=== PATIENT | male | born 1955 | race Caucasian/White ===

== ENCOUNTER → 2021-06-28 | Outpatient (CLI) | payer MEDICARE ==
[~2021-06-28] VITALS: Ht 170 cm; Wt 77.0 kg
[~2021-06-28] MED LIST: CATHETER FLUSH 10 ML SYR IV PRN; REGADENOSON 0.4 MG/5 ML SYR (LEXISCAN) IV ONE
[2021-06-28 12:04] LABS: ALBUMIN 4.1 GM/DL (3.2-4.5); BILIRUBIN,TOTAL 0.8 MG/DL (0.1-1.0); CREATININE SERUM 0.78 MG/DL (0.60-1.30); POTASSIUM 4.5 MMOL/L (3.6-5.0); TOTAL PROTEIN 7.4 GM/DL (6.4-8.2)
[2021-06-28 13:00] VITALS: BP 128/73
[2021-06-28 13:08] VITALS: BP 142/77
--- NOTE | 2021-06-28 15:20 | Cardiology Stress Test Report ---
Stress Test Report Date of Procedure/Referring: Date of Procedure: Jun 28, 2021 PCP Casa Curiel MD Admitting Physician Indications: CAD Baseline Heart Rate: 78 Baseline Blood Pressure: Blood Pressure Systolic: 142 Blood Pressure Diastolic: 77 Baseline Vitals Vital Signs Date Time Temp Pulse Resp B/P (MAP) Pulse Ox O2 Delivery O2 Flow Rate FiO2 06/28/21 13:00 78 128/73 (91) Baseline EKG: Baseline EKG: NSR Summary After explaining the procedure to the patient, he signed a consent and then brought to the stress nuclear laboratory. Patient received 0.4 mg Lexiscan for stress test, ECG, heart rate and blood pressure were monitored continuously. Resting and stress dose of radio tracer were injected, imaging was acquired and reviewed in short axis, horizontal long axis and vertical long axis views. TID: 1.14 SSS: 38 SDS: 3 EF: 49 1. Patient was unable to exercise, test was terminated and converted to Lexiscan Myoview stress test. 2. Patient tolerated Lexiscan well 3. 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 Prominent left ventricle diffuse left ventricular hypokinesia, akinesia of the apex, ejection fraction 49% CASA CURIEL MD Jun 28, 2021 15:20
== END ==
LOC: CARD 11:30
PROVIDERS: ATTEND Internal Medicine Cardiovascular Disease
DX: I10 Essential (primary) hypertension (principal); I25.10 Atherosclerotic heart disease of native coronary artery without angina pectoris
CPT/HCPCS: 78452; 80053; 80061; 93017; 93306; A9502; 36415

== ENCOUNTER → 2022-07-11 | Outpatient (CLI) | payer MEDICARE ==
[~2022-07-11] VITALS: Ht 172.7 cm; Wt 71.2 kg
[~2022-07-11] MED LIST changes: +ATOR10TA66 PO; +BUDE10.2 IH; -CATHETER FLUSH 10 ML SYR IV PRN; +EMPA25TA PO; +GABA-490 PO; +LISI10TA25 PO; +METF-479 PO; +METO-333 PO; +NAPR-1033 PO; -REGADENOSON 0.4 MG/5 ML SYR (LEXISCAN) IV ONE; +RT-ALBUINH IH; +TIOT18CA2 IH
== END | disposition home or self-care (01) ==
LOC: PREOP 05:30
PROVIDERS: ATTEND Surgery
DX: Z01.818 Encounter for other preprocedural examination (principal)

== ENCOUNTER 2022-07-18 07:27 | Day surgery (SDC) | payer MEDICARE ==
[~2022-07-18] VITALS: Ht 172 cm; Wt 71.2 kg
[2022-07-18] VITALS (10 sets, daily range): BP systolic 105–182; BP diastolic 67–97
[2022-07-18] MEDS: LACTATED RINGERS 1,000 ML IV PRN ×2 (08:11→11:20)
--- NOTE | 2022-07-18 08:24 | Progress Note-Pre Operative ---
Pre-Operative Progress Note Date of Available H&P: Jul 05, 2022 Date H&P Reviewed: Jul 18, 2022 Time H&P Reviewed: 08:22 History & Physical: H&P Reviewed, Patient Examed, No changes noted Pre-Operative Diagnosis: Left gluteal abscess, site marked DELORES WOLF DO Jul 18, 2022 08:24
[2022-07-18] MEDS ORDERED: metroNIDAZOLE 500MG/100ML IVPB 100 ML IV ONE (08:45)
[2022-07-18] MEDS ORDERED: proPOfol 200 MG/20 ML (DIPRIVAN) VIAL IV ONE (08:49)
[2022-07-18] MEDS ORDERED: ROCURONIUM 10 MG/ML 5 ML SYRINGE IV ONE (08:49)
[2022-07-18] MEDS ORDERED: MIDAZOLAM 2 MG/2 ML (VERSED) VIAL ONE (08:49)
[2022-07-18] MEDS ORDERED: ONDANSETRON 4 MG/2 ML (SDV) Z0FRAN ONE (08:49)
[2022-07-18] MEDS ORDERED: LIDOCAINE PF 2% 5 ML (XYLOCAINE) VIAL ONE (08:49)
[2022-07-18] MEDS ORDERED: fentaNYL INJ 100 MCG/2 ML AMP ONE (08:49)
[2022-07-18] MEDS ORDERED: SEVOFLURANE (ULTANE) 15 ML INHAL SOLN ONE ×3 (08:49→11:08)
[2022-07-18] MEDS ORDERED: metroNIDAZOLE 500MG/100ML IVPB 0 ML ONE (08:51)
[2022-07-18] MEDS ORDERED: ceFAZolin INJECTION 2,000 MG in NS (IVPB) 50 ML IV ONE (09:00)
--- NOTE | 2022-07-18 11:10 | Progress Note-Post Operative ---
Post-Operative Progess Note Surgeon (s)/Utility Helicopter Repairer (s) Surgeon DELORES WOLF DO Utility Helicopter Repairer: QUINTON Clinton Pre-Operative Diagnosis Left gluteal abscess, site marked Post-Operative Diagnosis Gluteal abscess and fistula Procedure & Operative Findings Date of Procedure 07/18/22 Procedure Performed/Findings Fistulectomy/fistulotomy Anesthesia Type GET Estimated Blood Loss Estimated blood loss (mL): appx 20ml Specimens/Packing Specimens Removed portion of fistula tract DELORES WOLF DO Jul 18, 2022 11:10
--- NOTE | 2022-07-18 11:15 | Progress Note-Post Operative ---
Post-Operative Progess Note Surgeon (s)/Facility Maintenance Technician (s) Surgeon DELORES WOLF DO Facility Maintenance Technician: JOHN ClintonII Pre-Operative Diagnosis screening colonoscopy Post-Operative Diagnosis Polyp Diverticula int hemorrhoids Procedure & Operative Findings Date of Procedure 07/18/22 Procedure Performed/Findings Colonoscopy with snare polypectomy PROCEDURE NOTE: After informed consent was obtained, the patient was in the operating room suite, placed in bed in left lateral decubitus position. He was intubated for the subsequent procedure by the ASSISTANT MANAGER PT who then monitored his vitals the entire time, heart rate, blood pressure and pulse ox and the scope was inserted, pushed all the way to about 120 cm and pushed into the cecum, took a picture of appendiceal orifice. On the way in noted multiple large diverticula throughout the entire colon and took a picture of them. Slowly withdrew the scope insufflating to look circum- ferentially at the gomez starting in the cecum, up the ascending colon to the hepatic flexure, then down the transverse colon, to the splenic flexure, into the descending colon and down into the sigmoid. In the sigmoid I found a large polyp and removed it with hot snare. Continued into the rectal vault and retroflexed the scope; I did see any opening or fistula in here, did find a hypertrophied hemorrhoid. Took a picture of the internal hemorrhoids. Recommended for repeat colonoscopy in 5 years. Anesthesia Type GET Estimated Blood Loss Estimated blood loss (mL): scant Specimens/Packing Specimens Removed sigmoid colon polyp DELORES WOLF DO Jul 18, 2022 11:15
[2022-07-18] MEDS ORDERED: ACHD5005 PO (11:18)
--- NOTE | 2022-07-18 11:19 | Endoscopy Discharge Instruct ---
Endo Procedure/Findings Findings 1.: Polyp 2.: Diverticulosis 3.: Internal Hemorrhoids Discharge Instructions - Activity: You might feel a little sleepy until tomorrow. This is due to the medicine you received to relax you. Until tomorrow, you should: NOT drive a car, operate machinery or power tools. NOT drink any alcoholic beverages. NOT make any important decisions or sign importortant papers. Do not return to work until tomorrow, unless otherwise instructed. Resume previous activities tomorrow. Diet: Start by taking liquids. If you tolerate liquids, advance to solid food. 1.: Colonscopy in 5 years Notify Physician - If you experience excessive bleeding, unusual abdominal pain, fever, or chest pain, contact your doctor immediately. DELORES WOLF DO Jul 18, 2022 11:19
--- NOTE | 2022-07-18 11:20 | Discharge Inst-Surgical ---
Discharge Inst-Surgical Depart Medication/Instructions New, Converted or Re-Newed RX: Transmitted to Pharmacy Patient Instructions Follow up Appt: Make appointment for 1 week. [phone] Instructions: May shower in 24 hours, no tub bath or soaking. Use incentive spirometer at home as directed. No Smoking Skin/Wound Care: May remove bandages in am. You need to change dressing daily, can come to the office for help with that. Symptoms to Report: Appetite Changes, Extremity Discoloration, Numbness/Tingling, Swelling Increased, Bleeding Excessive, Eyesight Changes, Pain Increased, Urine Color Change, Constipation(Persistent), Fever over 101 degree F, Pain/Pressure in chest, Urinating Difficulty, Cough Up/Vomit Blood, Heart Beat Irreg/Pounding, Pain/Pressure in jaw, Cramps in feet or legs, Lightheadedness, Pain/Pressure in shoulder, Diarrhea(Persistent), Memory Changes Suddenly, Questions/Concerns, Weight gain consecutive days, Dizziness/Fainting, Nausea/Vomiting, Shortness of Breath, Weight gain over 2 pounds If questions or concerns contact your physician Or seek help at emergency department. Activity Activity as Tolerated: Yes Activity Instructions: Avoid Stress to Incision Driving Instructions: No Driving/Refer to Dr. Broussard Discharge Diet: No Restrictions If Any Problems/Questions/Issu: Contact Your Physician, Go to Emergency Room Skin/Wound Care Infection Signs and Symptoms: Increased Redness, Foul Odor of Wound, Increased Drainage, Skin Itchy or Has a Rash, Increased Swelling, Temperature Above 101 F Bathing Instructions: DELORES Stover DO Jul 18, 2022 11:20
--- NOTE | 2022-07-18 11:28 | Anesthesia-General Post-Op ---
General Patient Condition Mental Status/LOC: Same as Preop Cardiovascular: Satisfactory Nausea/Vomiting: Absent Respiratory: Satisfactory Pain: Controlled Complications: Absent Post Op Complications Complications None Follow Up Care/Instructions Patient Instructions None needed. Anesthesia/Patient Condition Patient Condition Patient is doing well, no complaints, stable vital signs, no apparent adverse anesthesia problems. No complications reported per nursing. JANE MELENDEZ CRNA Jul 18, 2022 11:28
[2022-07-18] MEDS ORDERED: morphine INJ 10 MG/ML 1ML (SYR OR VIAL) IVP ONE (11:30)
[2022-07-18] MEDS ORDERED: ONDANSETRON 4 MG/2 ML (SDV) Z0FRAN IVP PRN (11:30)
[2022-07-18] MEDS ORDERED: MEPERIDINE (DEMEROL) INJ 50 MG/ML IVP ONE (11:30)
[2022-07-18] MEDS ORDERED: HYDROcodone/APAP 5 MG/325 MG (LORTAB) TAB ONE (12:41)
[2022-07-18] MEDS ORDERED: HYDROcodone/APAP 5 MG/325 MG (LORTAB) TAB PO ONE (12:45)
--- NOTE | 2022-07-18 20:31 | OPERATIVE REPORT ---
DATE OF SERVICE: 07/18/2022 PREOPERATIVE DIAGNOSIS: Left gluteal abscess. POSTOPERATIVE DIAGNOSIS: Left gluteal abscess and rectal fistula. PROCEDURE: Incision and drainage of ischiorectal abscess with fistulotomy/fistulectomy without placement of Seton. SURGEON: Darrell Denny DO CURRICULUM DEVELOPMENT COORDINATOR: Lincoln Baig, 3. ANESTHESIA: LMA. SPECIMEN: Portion of fistula. BLOOD LOSS: Approximately 20 mL. FLUIDS: Per anesthesia. POSTOPERATIVE CONDITION: Stable. INDICATION FOR PROCEDURE: The patient is a 66-year-old male, who had an abscess with one opening above like just to the left of the gluteal crease right almost at the height of the sacrum and then one lower near the rectum. It had been draining when I saw him in the office and now is not draining. FINDINGS: The patient had an abscess down near the rectum, which looked like tracts going towards the rectum, but staying above the internal anal sphincter. PROCEDURE NOTE: After informed consent was obtained, the patient was brought to the operating room. He was placed on table in left lateral decubitus position. He first had a colonoscopy done and then after colonoscopy was done, we had looked, there did not appear to be any openings from the inside. We then proceeded to see where this opening led to; actually only the superior opening was opened. The lower wound was closed. I probed a little bit and felt like it went down towards the lower opening. I elected to resect some of this fistula and tract, cut this out, passed this off the table. There was some bleeding from the edges and then continued to open this incision all the way down to the distal incision and then actually down more around the rectum, I found an abscess cavity. Purulent fluid was expressed. I cauterized this whole cavity to destroy it. There was a tract that appeared to be going towards the rectum. The probe would not go all the way in and I did not see anything on the inside; also did not get any air out when we did the colonoscopy. At this point, I elected not to create a fistula tract towards this, but I drained all the abscess, cauterized to control the bleeding and irrigated this and then elected to leave this open and packed it with iodoform and then dressing. The patient tolerated the procedure. Sponge, instrument and needle count correct at the end of the case. Job ID: [id number] DocumentID: [id number] Dictated Date: 07/18/2022 15:16:00 [employer] Date: 07/18/2022 20:30:14 Dictated By: DO ONELIA DILLON
== END 2022-07-18 13:27 | disposition home or self-care (01) ==
LOC: SDC 07:27
PROVIDERS: ATTEND Surgery
DX: D12.5 Benign neoplasm of sigmoid colon (principal); L03.327 Acute lymphangitis of buttock; K60.4 Rectal fistula; F17.210 Nicotine dependence, cigarettes, uncomplicated; Z28.311 Partially vaccinated for COVID-19; E11.42 Type 2 diabetes mellitus with diabetic polyneuropathy; Z79.84 Long term (current) use of oral hypoglycemic drugs
CPT/HCPCS: 82947; 87081